=== PATIENT | female | born 1970 | race Caucasian/White ===

== ENCOUNTER → 2016-08-16 | Outpatient (CLI) | payer OTHER ==
--- NOTE | 2016-08-16 13:02 | DX ---
Chest, PA and lateral. HISTORY: Shortness of breath. FINDINGS: Heart size is within normal limits. Pulmonary vascularity appears normal. The lungs are jennifer ar. No evidence for pleural effusion or pneumothorax. No significant osseous abnormality. IMPRESSION: Normal chest x-ray.
== END ==
LOC: BRMIMAGING 12:17
PROVIDERS: ATTEND Physician Assistant Medical
DX: R06.02 Shortness of breath (principal)
CPT/HCPCS: 71020-PO